=== PATIENT | male | born 2000 | race Hispanic/Latino ===

== ENCOUNTER 2025-07-14 13:41 | Emergency (ER) | payer SELFPAY ==
[2025-07-14 13:43] VITALS: BP 109/78
--- NOTE | 2025-07-14 14:12 | ED.GENMED ---
History of Present Illness
General
Chief Complaint: Oral/Mouth Problem
Source: patient
Exam Limitations: none
Time Seen by Provider: 07/14/25 14:00
History of Present Illness
History of Present Illness:
See MDM
Past History
Past History
ED Past Medical History: None
ED Past Surgical History: None
Social History
Tobacco: Non-smoker
Alcohol: None
Phy Exam
Physical Exam
Physical Exam:
See MDM
Course
Orders/Labs/Results
Orders:
Orders
07/14/25 14:08
Amoxicillin [Amoxil] 500 mg PO NOW STA
Ibuprofen [Motrin] 600 mg PO NOW STA
Vital Signs
Initial and Last Documented VS:
Initial Vital Signs
Temp Pulse Resp BP Pulse Ox
97.4 F 82 16 109/78 99
07/14/25 13:43 07/14/25 13:43 07/14/25 13:43 07/14/25 13:43 07/14/25 13:43
Last Documented Vital Signs
Temp Pulse Resp BP Pulse Ox
97.4 F 82 16 109/78 99
07/14/25 13:43 07/14/25 13:43 07/14/25 13:43 07/14/25 13:43 07/14/25 14:13
MDM/Problems Addressed
Differential Diagnosis Includes:
Note:
CHIEF COMPLAINT(S)
Swelling and pain of the lips.
HISTORY OF PRESENT ILLNESS
The patient is a 24-year-old male presenting with swelling and pain of the lips. The onset of symptoms was a few days and the patient acknowledges some degree of pain. He also reported experiencing a slight fever. Upon examination, the sores on the
lips have not crusted. The patient denied a history of herpes. He denies sick contacts.
PHYSICAL EXAM
General: Alert, no acute distress.
Skin: Warm, dry.
Head: Normocephalic, atraumatic
Neck: Appears supple, trachea midline.
Eyes, Ears, Nose, Mouth, and Throat: Oral mucosa moist. Very mild swelling to inner aspect of left upper lip and gumline
Cardiovascular: No signs of cyanosis
Respiratory: Respirations are non-labored.
Abdomen: Non-distended
Musculoskeletal: No deformities
Neurological: No focal neurological deficit observed.
Psychiatric: Cooperative, appropriate mood and affect.
PLAN
Administer antibiotics and pain medication to manage swelling and discomfort of the lips.
DIFFERENTIAL DIAGNOSIS
The Differential Diagnosis includes, in no particular order and is not limited to:
1. Herpes simplex virus infection
2. Allergic reaction
3. Angular cheilitis
4. Actinic cheilitis
5. Bacterial infection
6. Candidiasis
7. Contact dermatitis
8. Lip trauma
9. Erythema multiforme
10. Herndon-Ronal syndrome
Disposition:
SUMMARY OF ENCOUNTER
The patient, a 24-year-old male, presented with swelling and pain of the lips. Upon examination, there was significant swelling and tenderness of the lips, although there was no crusting or scabbing. Initial assessment ruled out herpes simplex virus
infection and aphthous ulcers. Given the concern for a possible intra-oral or dental infection, a plan for antibiotic therapy with amoxicillin was established. The patient was observed to be well-appearing, non-toxic, and afebrile, and my clinical
evaluation did not indicate any severe underlying condition. Consequently, the patient expressed comfort with outpatient management and willingness to follow up with primary care for further evaluation.
DISPOSITION
Discharge
PLAN
The patient will be prescribed amoxicillin to address potential infection contributing to lip swelling and pain. Pain management will be supported with appropriate analgesics.
PATIENT EDUCATION AND COUNSELING
The patient was advised on the signs of worsening infection, such as increased pain, fever, or spreading of swelling, which would necessitate immediate medical attention. He was counseled on the importance of completing the antibiotic course and
following up with primary care for further assessment.
FOLLOW-UP INSTRUCTIONS
The patient is instructed to schedule a follow-up visit with his primary care physician to assess the response to treatment and consider additional evaluation if symptoms persist or worsen.
MEDICATION RECONCILIATION
Amoxicillin prescribed.
MEDICAL DECISION MAKING
- Complexity of Data Reviewed: Differential diagnosis considered included an intra-oral/dental infection, excluding herpes simplex virus lesions and aphthous ulcers. Other differential considerations were an allergic reaction, angular cheilitis,
bacterial infection, candidiasis, contact dermatitis, lip trauma, erythema multiforme, Herndon-Ronal syndrome.
- Data:
Category 1
No lab tests ordered. My clinical assessment was based on the physical examination and patient history as there was no indication for immediate further testing.
-Risk:
Prescription medication was prescribed: amoxicillin to manage presumed bacterial infection.
DIAGNOSIS
1. Lip Swelling and Pain, likely secondary to bacterial infection (Diagnosis: unspecified cellulitis and abscess of face; ICD-10: L03.211).
*Pulse Oximetry
SaO2: 99
Oxygen Mode of Delivery: Room air
Patient hypoxic: no
*Critical Care Note
Total Time (30-74mins, 75-104mins- exclusive of procedures): Not Applicable
ED Attending Note
-
Portions of this chart may have been created with voice recognition software.� Occasional wrong word or��sound alike� substitutions may have occurred due to the inherent limitations of voice recognition software.
Discharge Plan
Departure
Patient Disposition: Home (Routine Discharge)
Date of Disposition: 07/14/25
Time of Disposition: 14:13
Patient with high blood pressure during this ER visit?: No
Discharge Problem:
Bacterial oral infection
Prescriptions:
New
diclofenac sodium 75 mg tablet,delayed release (DR/EC)
75 mg PO BID PRN (Reason: Pain) Qty: 20 0RF
amoxicillin 500 mg capsule
500 mg PO BID Qty: 14 0RF
Activity Restrictions/Additional Instructions:
Please return for any worsening symptoms.
You may return at any time if you have further concerns.
Please follow up with your doctor at the first available appointment, preferably this week.
Thank you for choosing [facility].
Discharge Date and Time
Print Language: ESTONIAN
[2025-07-14] MEDS: MOTRIN 600 MG PO (14:22)
[2025-07-14] MEDS: AMOXIL 500 MG PO (14:23)
== END 2025-07-14 14:30 | disposition home or self-care (01) ==
LOC: EMR 13:41
PROVIDERS: EMERGENCY PHYSICIAN Student in an Organized Health Care Education/Training Program
DX: L03.211 Cellulitis of face (principal)
CPT/HCPCS: 99283